=== PATIENT | female | born 1975 | race Caucasian/White ===

== ENCOUNTER 2017-06-08 17:15 | Emergency (ER) | payer MEDICAID, SELFPAY ==
[2017-06-08 17:17] VITALS: BP 125/81; PULSE 79; RESP 16; TEMP 36.8; O2SAT 100; BMI 19.7
--- NOTE | 2017-06-08 18:01 | ED.VISSUMM ---
- ER Visit Summary Date of Service: 06/08/17 Chief Complaint: Right breast lump History of Present Illness: The patient is a 42 F increasing lump right breast over 2 weeks. Yesterday became painful. No drainage. No fevers. States similar in the past in 2009 for which PCP at that time sent her for a mammogram which was benign stating was a cyst. States is in a different region. No other complaints. Physical Examination: General: Alert and oriented ?3, no acute distress HEENT: Normocephalic, atraumatic. Moist mucosa membranes Neck: supple, nontender. Cardiovascular: Regular rate and rhythm, no murmurs Breasts: RN present. Right: Induration noted lateral to alveolar along with superior alveolar. This was tender to palpation. No erythema or active drainage. Left: Nontender. Respiratory: Normal breath sounds, symmetric, no distress Abdomen: Soft, nontender, nondistended Extremities: Nontender, no edema, pulses intact ?4 Neuro: no focal neurological deficits. Test Results: Bedside ultrasound place, noted cystic lesion superior to the alveolar R of 2.6 cm x 2 cm. Fluid cytology sent and pending Emergency Department Course and Treatment: Patient given oxycodone for pain control. Due to tenderness and nodule palpated with cystic lesion, discuss needle aspiration for evaluation to rule out infection. Patient agreed. Bedside ultrasound performed with 2 mL of dark fluid return. This was sent for cytology. Discussed likely cystic lesion. However discussed with patient she require follow-up for outpatient reevaluation further testing. Patient understands and agrees with plan. Treatment Plan: [] Disposition: [] Impression: Right breast lump/cyst This note was generated with [employer] dictation software. It may contain incorrect words, spelling, and punctuation that were not noted in review of the chart prior to signing ED Disposition - Plan for ED Patient: Disposition: Home or Assisted Living Chief Complaint: Other, Pain/Inj Diagnosis: Cyst of right breast Prescriptions: Oxycodone HCl/Acetaminophen [Percocet 5/325] 1 tablet PO Q6H PRN PRN 3 Days #12 tablet PRN Reason: Pain Referrals: Marcial Santizo MD [Primary Care Provider] - 3-5 Days Additional Instructions: Cystic lesion on bedside ultrasound. Aspirated and sent for cytology. Follow-up with your doctor reevaluation further outpatient testing.
[2017-06-08] MEDS: oxyCODONE 5 MG Tablet PO (18:08)
--- NOTE | 2017-06-08 19:51 | FLU_PTH ---
PATIENT: BARNEY RANGEL LOC: ED U#:[id number] AGE/SX: 42/F ROOM: RE06/08/[address]: Dr. Anshu Lux DO : 1975 BED: DIS: 06/08/2017 SPEC #: [id number] RECD: 06/09/17 08:37 STATUS: DONNIE HERLINDA #: [id number] AJ: 06/08/17 19:[address]: Anshu Lux DEPT: CYTOLOGY RECD BY: Selvin Carrasco ENTERED: 06/09/17 08:38 SP TYPE: Fluid OTHR DR: Dr. Marcial Santizo MD Tissues: Breast, NOS Procedures: Pap Stain (control) Special Stain Group II Surgery Specimen Level IV Cell Block Cytospin Fluid HEADER OPERATION: Not noted PRE-OP DIAGNOSIS: Painful right breast lump TISSUE SUBMITTED: Right breast lump fluid for cytology DIAGNOSIS CYTOLOGY Right breast lump fluid for cytology (cytospin and cell block): Negative for malignant cells. See cytology study and comment. :rg 06/12/17 COMMENT The findings are consistent with fibrocystic changes. Correlation with clinical, radiologic findings and appropriate follow up are necessary. CYTOLOGY STUDY Slides are reviewed. The specimen consists of amorphous acellular material, macrophages and benign ductal cells. CYTOLOGY GROSS Received is 2 ml of dark brown, cloudy fluid labeled with the patient's name and and designated per the requisition as right breast lump. Submitted for cytology preparation including cell block. 06/09/17 TC:5 CPT: 97549, 69304
[2017-06-08 19:59] LABS: Cytology, Body Fluid / CSF SEE PATHOLOGY REPORT
[2017-06-08 20:01] VITALS: BP 117/86; PULSE 87; RESP 16; O2SAT 98
== END 2017-06-08 20:01 | disposition home or self-care (01) ==
PROVIDERS: Emergency Provider Emergency Medicine; Family Provider Family Medicine; PCP Family Medicine
DX: N60.01 Solitary cyst of right breast (principal); Z72.0 Tobacco use
CPT/HCPCS: 19083; 88108; 88305; 88313; 99283

== ENCOUNTER 2022-12-20 05:08 | Emergency (ER) | payer BC, SELFPAY ==
[2022-12-20] VITALS (7 sets, daily range): BP systolic 105–130; BP diastolic 63–75; PULSE 65–77; RESP 16–21; TEMP 36.5; O2SAT 95–100; BMI 21.4
--- NOTE | 2022-12-20 05:18 | EDS_ITS ---
HPI <Dr. Anshu Lux DO - Last Filed: 12/21/22 03:24> History of Present Illness Chief Complaint: Allergic Reaction Informant: patient and spouse/S.O. Narrative Narrative: Presents for concerning worsening allergic reaction. 2 days ago stung by bee right middle finger swelling to the area progressed to the hand has been using Benadryl every 6 hours last dose 6 hours ago. She is in contact with the on- call nurse. She is using topical steroids. However this morning awaking with trouble swallowing feels throat swelling. She has not been stung in the past. She denies any change in soaps or detergents. Denies any new medications. Past medical history social anxiety along with colitis diagnosed twice in [place] in the last year. Denies any cardiac history. Prior similar symptoms: No PFSH <Dr. Anshu Lux DO - Last Filed: 12/21/22 03:24> PFSH Medical History Anxiety Colitis Kidney stones Pneumonia Home Medications epinephrine 0.3 mg/0.3 mL injection, auto-injector (EpiPen 2-Nas) 0.3 mg (0.3 mL) IM Q10M PRN PRN anaphylaxis #2 ea 12/20/22 [Rx Last Taken Unknown] prednisone 20 mg tablet 60 mg (3 x 20 mg) PO DAILY #12 TABLETS 12/20/22 [Rx Last Taken Unknown] Allergy/AdvReac Type Severity Reaction Status Date / Time bee venom protein (honey bee) Allergy Hives Verified 12/20/22 05:10 dextromethorphan Allergy Other Verified 12/20/22 05:10 Family History Other Bleeding disorder Diabetes Family history of high cholesterol Hypertension Kidney disease Prostate cancer Surgical History History of tonsillectomy History of tubal ligation uterine ablation Social History Smoking Status: Current every day smoker tobacco type: cigarettes ROS <Dr. Anshu Lux DO - Last Filed: 12/21/22 03:24> ROS ED Constitutional Constitutional ED: Denies chills, fever(s) or sweats Eyes Eyes: Denies change in vision ENT ENT ED: Reports other Details: Throat swelling, hoarse voice ; Denies dysphagia or sore throat Cardiovascular Cardiovascular: Denies chest pain, leg edema, palpitations or racing heartbeat Respiratory/Chest Respiratory/Chest: Denies cough, dyspnea or dyspnea on exertion Gastrointestinal Gastrointestinal: Denies abdominal pain, diarrhea, nausea or vomiting Genitourinary Genitourinary ED: Denies dysuria, hematuria or urinary frequency Musculoskeletal Musculoskeletal: Denies back pain, extremity pain or neck pain Integumentary Reports wounds and other Details: Right middle finger and hand swelling ; Denies rash Neurologic Neurologic: Denies headache(s), paresthesias or weakness EXAM <Dr. Anshu Lux, DO - Last Filed: 12/21/22 03:24> Physical Exam Const Vital Signs: 12/20/22 05:11 12/20/22 06:02 12/20/22 07:33 Temperature 97.7 F L Temperature Source Temporal Pulse Rate 77 69 65 Respiratory Rate 16 18 18 Blood Pressure 121/70 H 130/63 H 107/75 Blood Pressure Mean 87 85 85 Pulse Ox 100 99 98 Oxygen Delivery Method Room Air 12/20/22 08:26 12/20/22 09:10 12/20/22 09:25 Temperature Temperature Source Pulse Rate 66 68 74 Respiratory Rate 21 H 19 H 21 H Blood Pressure 105/70 106/65 110/65 Blood Pressure Mean 81 78 80 Pulse Ox 97 97 95 Oxygen Delivery Method Room Air Room Air 12/20/22 09:32 Temperature Temperature Source Pulse Rate 76 Respiratory Rate 18 Blood Pressure 116/72 Blood Pressure Mean 86 Pulse Ox 97 Oxygen Delivery Method Room Air Positive well nourished and well developed Constitutional Narrative: Hoarse voice General Appearance ED: well developed and NAD HEENT Reports moist mucous membranes HEENT Narrative: No lip or tongue swelling. No trismus. No stridor normocephalic and atraumatic Eyes PERRL, EOMs intact bilaterally and conjunctivae normal General Eye ED: Yes normal appearance of both eyes Neck no lymphadenopathy and supple General: Negative for tenderness Chest Wall Chest: Negative for tenderness Resp normal respiratory effort and normal air movement Effort and Inspection: symmetric chest movement; Negative for respiratory distress Cardio regular rate, regular rhythm and no murmurs Peripheral Pulses: pulses 2+ throughout GI normal to inspection, nondistended, normoactive bowel sounds and non-tender Palpation: Negative for guarding or rebound tenderness present Back/Spine no CVA tenderness and no thoracic nor lumbar tenderness Extremity Extremity Narrative: Right upper extremity: Middle finger notes swelling to the digit across the PIP, there are papular rash lesions on the ulnar aspect of the digit. There is dorsal hand swelling. Mild erythema. No streaking up the arm. No stinger present. General Extremety ED: Negative for edema or tenderness General Extremity: Negative for edema Neuro oriented x3 and no sensory deficits noted Sensorium / Orientation: awake and alert Skin Skin Narrative: See above <Dr. Mckenna Jamil, DO - Last Filed: 12/20/22 09:16> Physical Exam Const Vital Signs: 12/20/22 05:11 12/20/22 06:02 12/20/22 07:33 Temperature 97.7 F L Temperature Source Temporal Pulse Rate 77 69 65 Respiratory Rate 16 18 18 Blood Pressure 121/70 H 130/63 H 107/75 Blood Pressure Mean 87 85 85 Pulse Ox 100 99 98 Oxygen Delivery Method Room Air 12/20/22 08:26 12/20/22 09:10 12/20/22 09:25 Temperature Temperature Source Pulse Rate 66 68 74 Respiratory Rate 21 H 19 H 21 H Blood Pressure 105/70 106/65 110/65 Blood Pressure Mean 81 78 80 Pulse Ox 97 97 95 Oxygen Delivery Method Room Air Room Air 12/20/22 09:32 Temperature Temperature Source Pulse Rate 76 Respiratory Rate 18 Blood Pressure 116/72 Blood Pressure Mean 86 Pulse Ox 97 Oxygen Delivery Method Room Air MDM <Dr. Anshu Lux, DO - Last Filed: 12/21/22 03:24> MDM MDM Narrative Medical decision making narrative: Interventions / MDM: Differential diagnosis: Anaphylaxis, bee sting Diagnosis considered but do not suspect: N/A My EKG interpretation: N/A Imaging independently reviewed and interpreted by myself: N/A External documents reviewed: N/A Test considered but not ordered:N/A ED course: Vital stable, localized bee sting 2 days ago however developed throat swelling hoarseness this morning. Secondary to the symptoms epinephrine will be given, IV established for steroids Benadryl and Pepcid. Will monitor. 0550: Throat symptoms improving. Status post medications. Will monitor overall for 4 hours for medications due to anaphylaxis concerns. Patient has Pepcid at home for which she is taking for her colitis, she will take twice a day. Benadryl every 6 hours. Plan for steroids and epinephrine pen all be sent to her pharmacy. 0640: Symptoms continue to be improved with improved voice. We will continue to monitor. Re-evaluation: stable Disposition discussed with patient/family/significant other: Patient and significant other Case discussed with consulting clinician: N/A This note was generated with [employer] software. It may contain incorrect words, spelling, and punctuation that were not noted in checking the note before signing. <Dr. Mckenna Jamil, DO - Last Filed: 12/20/22 09:16> MDM MDM Narrative Medical decision making narrative: Interventions / MDM: Differential diagnosis: Anaphylaxis, bee sting Diagnosis considered but do not suspect: N/A My EKG interpretation: N/A Imaging independently reviewed and interpreted by myself: N/A External documents reviewed: N/A Test considered but not ordered:N/A ED course: Vital stable, localized bee sting 2 days ago however developed throat swelling hoarseness this morning. Secondary to the symptoms epinephrine will be given, IV established for steroids Benadryl and Pepcid. Will monitor. 0550: Throat symptoms improving. Status post medications. Will monitor overall for 4 hours for medications due to anaphylaxis concerns. Patient has Pepcid at home for which she is taking for her colitis, she will take twice a day. Benadryl every 6 hours. Plan for steroids and epinephrine pen all be sent to her pharmacy. 0640: Symptoms continue to be improved with improved voice. We will continue to monitor. Re-evaluation: stable Disposition discussed with patient/family/significant other: Patient and significant other Case discussed with consulting clinician: N/A This note was generated with [employer] software. It may contain incorrect words, spelling, and punctuation that were not noted in checking the note before signing. Care of patient turned over to me this morning awaiting evaluation and observation period. At 9:15 AM patient without complaints. She has no lip or tongue or throat swelling. No difficulty breathing. Does continue to have some soft tissue swelling to the dorsum of the right hand and middle finger. Patient asking to be discharged to home. Clinically she looks well. Dr. Daly wrote patient prescription for EpiPen as well as prednisone. Patient advised to return if lip or tongue swelling, difficulty breathing, or condition worsening way. Discharge Plan Triage Chief Complaint: Allergic Reaction ED Provider: Anshu Lux Dx/Rx/DC Orders Clinical Impression: Anaphylactic reaction, Bee sting reaction Instructions: ED BEE STING General Allergic Rxn, ED Anaphylaxis Prescriptions: New prednisone 20 mg tablet 60 mg PO DAILY Qty: 12 0RF epinephrine [EpiPen 2-Nas] 0.3 mg/0.3 mL auto-injector 0.3 mg IM Q10M PRN PRN (Reason: anaphylaxis) Qty: 2 0RF Stand Alone Forms: ED Work / School Excuse Primary Care Provider: Marcial Santizo Referrals: Marcial Santizo MD [Primary Care Provider] - 3-5 Days Activity Restrictions/Additional Instructions: You have developed delayed swelling in throat to bee sting. You are given epinephrine in the ED. EpiPen provided. Take steroids for additional 4 days. Increase your famotidine to twice a day for 5 days total. Use Benadryl every 6 hours as needed. Follow-up with your doctor. Return if any worsening symptoms. Disposition Disposition: Home, Self Care Discharge Date/Time: 12/20/22 09:33
[2022-12-20] MEDS: DiphenhydrAMINE 50 MG/ML Syringe IV (05:25)
[2022-12-20] MEDS: MethylPREDNISolone 125 MG/2 ML Vial IV (05:25)
[2022-12-20] MEDS: Epi Pen (EQUIV) 0.3 MG Syringe IM (05:29)
[2022-12-20] MEDS: Famotidine 200 MG/20 ML MDV 20 MG in 0.9% Normal Saline (Pres. free 8 ML 300 MG IV (05:34)
== END 2022-12-20 09:33 | disposition home or self-care (01) ==
PROVIDERS: Emergency Provider Emergency Medicine; PCP Family Medicine; Visit Provider Emergency Medicine
DX: T63.444A Toxic effect of venom of bees, undetermined, initial encounter (principal); F17.210 Nicotine dependence, cigarettes, uncomplicated
CPT/HCPCS: 96365; 96375; 99283; J7030; A4216; J3490

== ENCOUNTER 2023-02-25 01:40 | Observation (INO) | payer BC, SELFPAY ==
[2023-02-25] VITALS (7 sets, daily range): BP systolic 93–142; BP diastolic 41–89; PULSE 60–79; RESP 16–22; TEMP 36–37.1; O2SAT 98–100; BMI 20.9; BMI 20.2
--- NOTE | 2023-02-25 01:51 | CT_ITS ---
INDICATION: abdominal pain EXAMINATION: CT Abdomen And Pelvis W/ Contrast Injection TECHNIQUE: Helically acquired images were obtained of the abdomen and pelvis with sagittal and coronal reconstructed images. Individualized dose optimization techniques were used for this CT. IV contrast dosage and agent: 75 mL of Isovue-370. Oral contrast: None. COMPARISON: None. FINDINGS: VESSELS: No abdominal aortic aneurysm or dissection. LIVER: No evidence of a mass. No intrahepatic or extrahepatic biliary duct dilation. GALLBLADDER: No calcified stones. No evidence of cholecystitis. PANCREAS: No focal solid or cystic mass. No evidence of pancreatitis. SPLEEN: Normal. ADRENAL GLANDS: Normal. KIDNEYS AND URETERS: 8 mm low-density lesion within the upper pole of the right kidney with indeterminate attenuation values. No urinary tract stone. No hydronephrosis or hydroureter. No significant asymmetric perinephric stranding. URINARY BLADDER: Unremarkable. BOWEL: Thickening of the ascending colon with mild adjacent fat stranding. No evidence of diverticulosis or diverticulitis. Appendix appears normal. No evidence of bowel obstruction. REPRODUCTIVE ORGANS: No evidence of a pelvic mass. PERITONEUM: No intraabdominal free fluid or free air. LYMPH NODES: No pathologically enlarged mesenteric or retroperitoneal lymph nodes. ABDOMINAL WALL: No abdominal or pelvic wall hernia. BONES: No acute abnormality. LOWER CHEST: Visualized lung bases are unremarkable. CT/Abdomen/Pelvis W IV Cont ONLY IMPRESSION: 1. Thickening of the ascending colon with mild adjacent fat stranding consistent with colitis. 2. 3 mm low-density lesion in the upper pole of the right kidney with indeterminate attenuation values. Recommend follow-up with routine MRI versus CT with dedicated renal protocol. Electronically Signed: Joseph Fernandes DO at 3:39 EST ,
--- NOTE | 2023-02-25 01:52 | ED.VIS.GI ---
HPI HPI - GI History of Present Illness Chief Complaint: Abd Pain Detail of Chief Complaint: Abdominal pain Informant: patient Narrative Narrative: Patient presents with abdominal pain that started about 2 hours ago. Patient had been drinking heavily today because tomorrow is her birthday. She was drinking tequila. Patient started having nausea and vomiting around 10 PM last evening. Started having diarrhea. Patient has felt similarly in the past when diagnosed with colitis. She denies any blood in her stool. She denies hematemesis. Denies urinary symptoms. PFSH PFSH Medical History Alcohol abuse Anxiety Colitis Depression GERD (gastroesophageal reflux disease) Kidney stones Marijuana smoker Panic disorder Pneumonia Smoker Home Medications famotidine 10 mg tablet 10 mg PO DAILY 02/25/23 [History Last Taken Unknown] Allergy/AdvReac Type Severity Reaction Status Date / Time bee venom protein (honey bee) Allergy Hives Verified 02/25/23 01:40 dextromethorphan Allergy Other Verified 02/25/23 01:40 Family History Other Bleeding disorder Diabetes Family history of high cholesterol Hypertension Kidney disease Prostate cancer Surgical History History of tonsillectomy History of tubal ligation uterine ablation Social History Smoking Status: Current every day smoker tobacco type: cigarettes ROS ROS ED Review of Systems ROS Unobtainable: other Constitutional Constitutional ED: Reports lethargy; Denies chills, fever(s), sweats or weight loss Eyes Eyes: Denies blurry vision, change in vision or diplopia ENT ENT ED: Denies rhinorrhea or sore throat Cardiovascular Cardiovascular: Reports chest pain and racing heartbeat; Denies orthopnea Respiratory/Chest Respiratory/Chest: Reports dyspnea and dyspnea on exertion; Denies cough, orthopnea or sputum Gastrointestinal Gastrointestinal: Reports abdominal pain, diarrhea, nausea and vomiting Genitourinary Genitourinary ED: Denies dysuria, hematuria or urinary frequency Musculoskeletal Musculoskeletal: Denies arthralgias, back pain, myalgias or neck pain Integumentary Denies abscess, Abrasions or rash Neurologic Neurologic: Denies headache(s) or weakness Psychiatric Psychiatric: Denies anxiety, depression or suicidal thoughts Endocrine Endocrinology: Denies polydipsia, polyphagia or polyuria Hematologic/Lymphatic Hematologic/Lymphatic: Denies easy bleeding, easy bruising or lymphadenopathy Allergic/Immunologic Allergic/Immunologic ED: Denies mouth swelling, tongue swelling or urticaria EXAM Physical Exam Const Vital Signs: 02/25/23 01:40 02/25/23 01:48 Temperature 96.8 F L Temperature Source Temporal Pulse Rate 72 Respiratory Rate 22 H Blood Pressure 132/82 H Blood Pressure Mean 98 Pulse Ox 99 Oxygen Delivery Method Room Air Positive well nourished and well developed General Appearance ED: well developed and NAD HEENT Reports TM's clear and moist mucous membranes normocephalic and atraumatic; Negative for trauma or tenderness Tympanic Membrane ED: Yes TM's clear Eyes PERRL and EOMs intact bilaterally General Eye ED: Negative for pale conjunctiva or scleral icterus Neck no lymphadenopathy, supple and no JVD General: Negative for tenderness Chest Wall inspection of chest normal and palpation of chest normal Chest: Negative for tenderness Resp normal respiratory effort and clear to auscultation bilaterally Effort and Inspection: Negative for respiratory distress or pain with movement Auscultation: Negative for rhonchi, wheezes or diminished lung sounds Cardio regular rate, regular rhythm, S1 normal heart sound, S2 normal heart sound and no murmurs Peripheral Pulses: pulses 2+ throughout GI normal to inspection, nondistended, normoactive bowel sounds, soft to palpation, non-distended and no masses GI Narrative: Mild diffuse tenderness. There is no rebound, rigidity, or perineal signs. No mass palpated. Back/Spine no CVA tenderness and no thoracic nor lumbar tenderness Extremity normal to inspection General Extremety ED: Negative for edema General Extremity: Negative for edema Neuro oriented x3, CN's II-XII intact bilaterally, no sensory deficits noted and gait normal Sensorium / Orientation: awake, alert, oriented to person, oriented to place and oriented to time Motor Exam: strength 5/5 throughout and strength abnormal Psych mental status grossly normal Skin no rashes or lesions noted and no wounds MDM MDM MDM Narrative Medical decision making narrative: Presents with abdominal pain as well as vomiting and diarrhea that started 2 hours ago. Patient has history of colitis. IV line established. She was medicated with morphine and Zofran. CBC with differential obtained showed a white count 12.3 with hemoglobin 12.8 and platelet count of 276. Chemistries unremarkable. Lactate was elevated 3.1. LFTs were normal. Lipase normal. Urinalysis normal. Alcohol was 70. CT scan of the abdomen pelvis showed colitis of the right side of the ascending colon. Patient had to be remedicated with morphine and Zofran after initial treatment with morphine and Zofran. She was started on Cipro and Flagyl. She was given fluids. Case discussed with hospitalist will evaluate patient for admission Lab Data Attestation: I reviewed the patient's lab results. Labs: Laboratory Results - last 24 hr 02/25/23 02/25/23 02:03 03:10 WBC 12.3 H RBC 4.06 L Hgb 12.8 Hct 39.1 MCV 96.3 MCH 31.5 MCHC 32.7 RDW Std Deviation 43.6 RDW Coeff of Huong 12.2 Plt Count 276 MPV 12.0 Neut % (Auto) Not Reportable Absolute Neuts (auto) 11.1 H Absolute Lymphs (auto) 1.11 Total Counted 100 Neutrophils % (Manual) 90 H Lymphocytes % (Manual) 9 L Monocytes % (Manual) 1 Platelet Estimate ADEQUATE RBC Morphology NORM C+C Sodium 144 Potassium 3.8 Chloride 116 H Carbon Dioxide 22.0 Anion Gap 6 BUN 4 L Creatinine 0.68 Estim Creat Clear Calc 90.22 Est GFR (MDRD) Af Amer 120 Est GFR (MDRD) Non-Af 99 BUN/Creatinine Ratio 5.9 L Glucose 138 H Lactic Acid 3.1 H* Calcium 8.8 Total Bilirubin 0.20 AST 6 L ALT 12 L Alkaline Phosphatase 52 Total Protein 7.6 Albumin 3.8 Globulin 3.8 Albumin/Globulin Ratio 1.0 Lipase 35 Urine Color Yellow Urine Clarity Clear Urine pH 7.0 Ur Specific Shanks 1.010 Urine Protein 15 H Urine Glucose (UA) Normal Urine Ketones Negative Urine Occult Blood Negative Urine Nitrite Negative Urine Bilirubin Negative Urine Urobilinogen Normal Ur Leukocyte Esterase 25 H Urine RBC 0 SEEN Urine WBC 0-5 SEEN Ur Squamous Epith Cells 0-5 SEEN Urine Bacteria 0 SEEN Urine Mucus 0 SEEN Ethyl Alcohol 70.0 Radiography Diagnostic Testing: Clinical Impression(s) from Imaging Studies Abdomen/Pelvis CT 02/25/23 01:51 IMPRESSION: 1. Thickening of the ascending colon with mild adjacent fat stranding consistent with colitis. 2. 3 mm low-density lesion in the upper pole of the right kidney with indeterminate attenuation values. Recommend follow-up with routine MRI versus CT with dedicated renal protocol. Electronically Signed: Joseph Fernandes DO at 3:39 EST , Discharge Plan Dx/Rx/DC Orders Clinical Impression: Vomiting and diarrhea, Colitis, Abdominal pain, Acidosis, lactic Disposition Disposition: Acute Care Hospital [facility] Discharge Date/Time: 02/25/23 04:46
[2023-02-25] MEDS: 0.9% Normal Saline (1000mL) 1,000 ML 1000 ML IV (02:05)
[2023-02-25] MEDS: Ondansetron 4 MG/2 ML Vial IV ×2 (02:05→04:26)
[2023-02-25] MEDS: Morphine 4 MG/ML Syringe IV ×2 (02:06→04:25)
[2023-02-25 02:16] LABS: Hematocrit 39.1 % (37-47); Hemoglobin 12.8 g/dL (12.0-15.0); Mean Corp Hgb Conc 32.7 g/dL (32-36); Mean Corpuscular Hgb 31.5 pg (27.0-32.0); Mean Corpuscular Volume 96.3 fL (81-99); POSITIVE DIFFERENTIAL YES; POSITIVE MORPHOLOGY YES; Platelet Count 276 K/mm3 (150-450); RBC Distribution Width CV 12.2 % (11.6-14.6); RBC Distribution Width SD 43.6 fl (35.1-43.9); Red Blood Count 4.06 M/mm3 (4.2-5.4); White Blood Count 12.3 K/mm3 (4.4-11.0)
[2023-02-25 02:32] LABS: Differential Indicated MANUAL DIFF
[2023-02-25 02:33] LABS: AST(SGOT) 6 U/L (15-37); Alanine Aminotransfer ALT/SGPT 12 U/L (13-56); Albumin, Serum 3.8 g/dL (3.2-5.0); Alkaline Phosphatase 52 U/L (45-117); Anion Gap 6 (5-15); BUN 4 mg/dL (7-18); BUN/Creat Ratio 5.9 RATIO (10-20); Calcium,Total 8.8 mg/dL (8.5-10.1); Chloride 116 mmol/L (98-107); Creatinine, Serum 0.68 mg/dL (0.55-1.02); EST Glomerular Filtration Rate 99 mL/min (>60); Est Glom Filt Rate - Afr Amer 120 mL/min (>60); Estimated Creatinine Clearance 90.22 ml/min; Globulin 3.8 g/dL (2.2-4.2); Glucose 138 mg/dL (74-106); Lipase 35 U/L (13-75); Potassium 3.8 mmol/L (3.5-5.1); Protein, Total 7.6 g/dL (6.4-8.2); Sodium Level 144 mmol/L (136-145)
[2023-02-25 02:35] LABS: Lymphocyte 9 % (19-41); Monocyte 1 % (0-10); Neutrophil-Segmented 90 % (47-70); Total Cells Counted 100 (MANUAL DIFF)
[2023-02-25 02:36] LABS: Absolute Lymphocyte Count 1.11 X10^3/uL (0.83-4.51); Absolute Neutrophil Count 11.1 X10^3/uL (2.0-7.7); Lymphocyte # 1.11 X10^3/ul (0.83-4.51); Neutrophil # 11.08 X10^3/uL (2.7-7.7)
[2023-02-25 02:37] LABS: Platelet Estimate ADEQUATE (ADEQ); Red Cell Morphology NORM C+C NORMAL (NORM C&C)
[2023-02-25 02:43] LABS: Lactic Acid 3.1 mmol/L (0.4-1.9)
[2023-02-25 03:14] LABS: Bacteria 0 SEEN /hpf (None Seen); Mucous, Urine 0 SEEN /hpf (<or=2+); Red Blood Cells-Urine 0 SEEN /hpf (0-5)
[2023-02-25 03:15] LABS: Color, Urine Yellow (Yellow); Glucose, Dipstick Normal (Normal); Ketone-Dipstick Negative (Negative); Leukocyte Esterase-Dipstick 25 /ul (Negative); Nitrite-Dipstick Negative (Negative); Occult Blood-Urine Negative /ul (Negative); Protein-Dipstick 15 mg/dl (Negative); Urine Bilirubin Dipstick Negative (Negative); Urine Clarity Clear (Clear); Urine Urobilinogen Normal (Normal)
[2023-02-25 03:25] LABS: Squamous Epithelial Cells - UA 0-5 SEEN /hpf (5-10); White Blood Cells 0-5 SEEN /hpf (0-5)
--- NOTE | 2023-02-25 04:10 | PCM.HP.STD ---
HPI - General General Date of Admission: 02/25/23 Date of Service: 02/25/23 Chief Complaint: abdominal pain HPI Narrative BARNEY RANGEL, is a 47 F with a PMh as outlined who presents via the ED On 02/25/2023 with a complaint of abdominal pain which started 2 hours prior to admission. Patient had apparently been drinking very happily in anticipation of her birthday which was the next day. She was apparently drinking tequila. She had associated vomiting and diarrhea and was also vomiting. She denied any fever or chills. Review of systems was otherwise negative. Vitals were BP of 132/82, LA of 72, RR of 22 and she was saturating at 99% on room air. CBC showed hb of 12.8, wbc of 12.3 and platelets of 276. Chemsitry showed sodium of 144,bicarb of 22 and Cr of 0.68. Lactic acid was 3.1 and liver enzymes were not elevated. Urinalysis showed no evidence of UTI. CT abdomen and pelvis showed thickening of the ascending colon with mild adjacent fat stranding consistent with colitis and a 3 mm low density lesion in the upper pole of the right kidney indeterminate attenuation values. She has been admitted to be managed abdominal pain due to acute colitis likely triggered by excessive alcohol intake. [facility] Medical History Alcohol abuse Anxiety Colitis Depression GERD (gastroesophageal reflux disease) Kidney stones Marijuana smoker Panic disorder Pneumonia Smoker Home Medications famotidine 10 mg tablet 10 mg PO DAILY 02/25/23 [History Last Taken Unknown] Allergy/AdvReac Type Severity Reaction Status Date / Time bee venom protein (honey bee) Allergy Hives Verified 02/25/23 01:40 dextromethorphan Allergy Other Verified 02/25/23 01:40 Family History Other Bleeding disorder Diabetes Family history of high cholesterol Hypertension Kidney disease Prostate cancer Surgical History History of tonsillectomy History of tubal ligation uterine ablation Social History Smoking Status: Current every day smoker tobacco type: cigarettes ROS Review of Systems ROS Unobtainable: Denies due to encephalopathy Constitutional Constitutional: Reports fatigue and malaise; Denies anorexia, change in weight, chills, fever(s) or weakness Eyes Eyes: Denies change in eye color ENT HEENT: Denies dysphagia or sore throat Cardiovascular Cardiovascular: Denies dyspnea on exertion, edema, lightheadedness, orthopnea, palpitations, paroxysmal nocturnal dyspnea, rapid heart rate or syncope Respiratory/Chest Respiratory/Chest: Denies cough, dyspnea, productive cough, shortness of breath at rest, shortness of breath with exertion or wheezing Gastrointestinal Gastrointestinal: Reports abdominal pain, diarrhea and nausea; Denies coffee ground emesis, constipation, dyspepsia, hematemesis, hematochezia, loose stools, melena or vomiting Genitourinary Genitourinary: Denies difficulty urinating Musculoskeletal Musculoskeletal: Denies joint pain Psychiatric Psychiatric: Reports anxiety; Denies depression Vital Signs Vital Signs Vital Signs: 02/25/23 01:40 02/25/23 01:48 Temperature 96.8 F L Temperature Source Temporal Pulse Rate 72 Respiratory Rate 22 H Blood Pressure 132/82 H Blood Pressure Mean 98 Pulse Ox 99 Oxygen Delivery Method Room Air Weight Weight: 122 lb 5.705 oz Body Mass Index (BMI) 20.9 Physical Exam Const alert Constitutional Narrative: in moderate distress due to pain HEENT normocephalic, head/scalp atraumatic, hearing grossly normal bilaterally and moist oral mucous membranes Mouth: oral and palatal mucosa normal Eyes PERRL, EOMs intact bilaterally and conjunctivae normal Neck no lymphadenopathy and supple Resp normal respiratory effort, no retractions, no use of accessory muscles and clear to auscultation bilaterally Cardio regular rate, regular rhythm, S1 normal heart sound, S2 normal heart sound and no murmurs GI normal to inspection, nondistended, normoactive bowel sounds and soft to palpation GI Narrative: mild generalised tenderness, no guarding or rebound tenderness Extremity normal to inspection, full ROM and no clubbing, cyanosis or edema Neuro oriented x3, CN's II-XII intact bilaterally, moves all extremities and no focal motor deficits Sensorium / Orientation: awake Motor Exam: strength 5/5 throughout Psych affect normal Results Lab / Micro Data 02/25/23 02:03 02/25/23 02:03 Labs: Laboratory Results - last 24 hr 02/25/23 02:03: WBC 12.3 H, RBC 4.06 L, Hgb 12.8, Hct 39.1, MCV 96.3, MCH 31.5, MCHC 32.7, RDW Std Deviation 43.6, RDW Coeff of Huong 12.2, Plt Count 276, MPV 12.0, Neut % (Auto) Not Reportable, Absolute Neuts (auto) 11.1 H, Absolute Lymphs (auto) 1.11, Total Counted 100, Neutrophils % (Manual) 90 H, Lymphocytes % (Manual) 9 L, Monocytes % (Manual) 1, Platelet Estimate ADEQUATE, RBC Morphology NORM C+C, Sodium 144, Potassium 3.8, Chloride 116 H, Carbon Dioxide 22.0, Anion Gap 6, BUN 4 L, Creatinine 0.68, Estim Creat Clear Calc 90.22, Est GFR (MDRD) Af Amer 120, Est GFR (MDRD) Non-Af 99, BUN/Creatinine Ratio 5.9 L, Glucose 138 H, Lactic Acid 3.1 H*, Calcium 8.8, Total Bilirubin 0.20, AST 6 L, ALT 12 L, Alkaline Phosphatase 52, Total Protein 7.6, Albumin 3.8, Globulin 3.8, Albumin/Globulin Ratio 1.0, Lipase 35, Ethyl Alcohol 70.0 02/25/23 03:10: Urine Color Yellow, Urine Clarity Clear, Urine pH 7.0, Ur Specific [place] 1.010, Urine Protein 15 H, Urine Glucose (UA) Normal, Urine Ketones Negative, Urine Occult Blood Negative, Urine Nitrite Negative, Urine Bilirubin Negative, Urine Urobilinogen Normal, Ur Leukocyte Esterase 25 H, Urine RBC 0 SEEN, Urine WBC 0-5 SEEN, Ur Squamous Epith Cells 0-5 SEEN, Urine Bacteria 0 SEEN, Urine Mucus 0 SEEN Imagaing Radiology Impression Abdomen/Pelvis CT 02/25/23 01:51 IMPRESSION: 1. Thickening of the ascending colon with mild adjacent fat stranding consistent with colitis. 2. 3 mm low-density lesion in the upper pole of the right kidney with indeterminate attenuation values. Recommend follow-up with routine MRI versus CT with dedicated renal protocol. Electronically Signed: Joseph Fernandes DO at 3:39 EST , Assessment & Plan Assessment/Plan (1) Abdominal pain: (2) Colitis: (3) Vomiting and diarrhea: (4) Acidosis, lactic: PLAN: Plan #Acute colitis Admit to [facility] Started having abdominal pain after drinking a lot of alcohol anticipation of her birthday in a few days. CT of the abdomen and pelvis showed thickening of the ascending colon with mild adjacent fat stranding consistent with colitis. Keep n.p.o. for now and hydrate with IV fluids. IV morphine as needed for pain Lactic acid was elevated; wbc is up to 12.3. Patient started on IV ciprofloxacin and metronidazole in the ED. Will continue. #lactic acidosis: likely due to diarrhea and vomiting. Should improve with hydration. #Alcohol use disorder Patient was drinking heavily in anticipation of her birthday in a few days time. However she says she does not drink heavily that often. Currently not in withdrawal. Will monitor for now and initiate CIWA protocol if needed. #GERD: on famotidine. DVT prophylaxis; SCDs Total time spent on evaluation and management of patient, reviewing chart and specialist notes, discussing plan with patient and her partner, discussion with nursing and ancillary staff as well as documentation: 52 mins Charges/Coding Visit Charges Inpatient E&M: 91672 Init Hosp L2
[2023-02-25] MEDS: Ciprofloxacin 400 MG/200 ML BAG 200 MG IV ×3 (04:26→22:34)
[2023-02-25 06:13] LABS: Reflex Lactate? Y
[2023-02-25] MEDS: 0.9% Normal Saline (1000mL) 1,000 ML 150 ML IV ×2 (06:45→17:15)
[2023-02-25] MEDS: metroNIDAZOLE 500 MG/100 ML BAG 100 MG IV ×3 (06:48→20:36)
[2023-02-25] MEDS: 0.9% Saline Lock 10 ML Syringe IV ×3 (06:48→09:52)
[2023-02-25 07:21] LABS: Absolute Lymphocyte Count 0.67 X10^3/uL (0.83-4.51); Absolute Neutrophil Count 10.7 X10^3/uL (2.0-7.7); Basophil# 0.02 X10^3/uL; Basophil% 0.2 % (0-1); Hematocrit 36.3 % (37-47); Hemoglobin 12.1 g/dL (12.0-15.0); Lymphocyte # 0.67 X10^3/ul (0.83-4.51); Lymphocyte % 5.8 % (19-41); Mean Corp Hgb Conc 33.3 g/dL (32-36); Mean Corpuscular Hgb 31.8 pg (27.0-32.0); Mean Corpuscular Volume 95.5 fL (81-99); Mean Platelet Vol. 11.9 fl (6.2-12.0); Monocyte# 0.14 X10^3/uL; Monocyte% 1.2 % (0-10); NRBC Flagged by Analyzer 0 % (0-5); Neutrophil # 10.71 X10^3/uL (2.7-7.7); Neutrophil % 92.5 % (47-70); Platelet Count 240 K/mm3 (150-450); RBC Distribution Width CV 12.3 % (11.6-14.6); RBC Distribution Width SD 42.5 fl (35.1-43.9); White Blood Count 11.6 K/mm3 (4.4-11.0)
--- NOTE | 2023-02-25 07:47 | PCM.PN.HOSP ---
Reason for Visit Reason for Visit: Diagnoses Acidosis, unspecified (02/25/23) Noninfective gastroenteritis and colitis, unspecified (02/25/23) Unspecified abdominal pain (02/25/23) Vomiting, unspecified (02/25/23) Diarrhea, unspecified (02/25/23) Subjective Subjective Patient is a 47-year-old lady who presented with abdominal pain with associated nausea and vomiting imaging studies obtained on admission did show Thickening of the ascending colon with mild adjacent fat stranding consistent with colitis. Admitted to regular nursing floor for further management Objective Data Objective Data Vital Signs: Vital Signs Temp Pulse Resp BP Pulse Ox O2 Del Method 97.6 F L 79 20 H 116/82 H 98 Room Air 02/25/23 06:57 02/25/23 06:57 02/25/23 06:57 02/25/23 06:57 02/25/23 06:57 02/25/23 06:57 Oxygen Delivery Method Room Air Weight: 53.5 kg Body Mass Index (BMI) 20.2 Intake & Output: Intake and Output for Last 24 Hours 02/23/23 02/24/23 02/25/23 23:59 23:59 23:59 Intake Total 1200 / 1200 Balance 1200 / 1200 Lab / Micro Data 02/25/23 07:09 02/25/23 07:09 Labs: Laboratory Results - last 24 hr 02/25/23 02:03: WBC 12.3 H, RBC 4.06 L, Hgb 12.8, Hct 39.1, MCV 96.3, MCH 31.5, MCHC 32.7, RDW Std Deviation 43.6, RDW Coeff of Huong 12.2, Plt Count 276, MPV 12.0, Neut % (Auto) Not Reportable, Absolute Neuts (auto) 11.1 H, Absolute Lymphs (auto) 1.11, Total Counted 100, Neutrophils % (Manual) 90 H, Lymphocytes % (Manual) 9 L, Monocytes % (Manual) 1, Platelet Estimate ADEQUATE, RBC Morphology NORM C+C, Sodium 144, Potassium 3.8, Chloride 116 H, Carbon Dioxide 22.0, Anion Gap 6, BUN 4 L, Creatinine 0.68, Estim Creat Clear Calc 90.22, Est GFR (MDRD) Af Amer 120, Est GFR (MDRD) Non-Af 99, BUN/Creatinine Ratio 5.9 L, Glucose 138 H, Lactic Acid 3.1 H*, Calcium 8.8, Total Bilirubin 0.20, AST 6 L, ALT 12 L, Alkaline Phosphatase 52, Total Protein 7.6, Albumin 3.8, Globulin 3.8, Albumin/Globulin Ratio 1.0, Lipase 35, Ethyl Alcohol 70.0 02/25/23 03:10: Urine Color Yellow, Urine Clarity Clear, Urine pH 7.0, Ur Specific [place] 1.010, Urine Protein 15 H, Urine Glucose (UA) Normal, Urine Ketones Negative, Urine Occult Blood Negative, Urine Nitrite Negative, Urine Bilirubin Negative, Urine Urobilinogen Normal, Ur Leukocyte Esterase 25 H, Urine RBC 0 SEEN, Urine WBC 0-5 SEEN, Ur Squamous Epith Cells 0-5 SEEN, Urine Bacteria 0 SEEN, Urine Mucus 0 SEEN 02/25/23 07:09: WBC 11.6 H, RBC 3.80 L, Hgb 12.1, Hct 36.3 L, MCV 95.5, MCH 31.8, MCHC 33.3, RDW Std Deviation 42.5, RDW Coeff of Huong 12.3, Plt Count 240, MPV 11.9, Immature Gran % (Auto) 0.300, Neut % (Auto) 92.5 H, Lymph % (Auto) 5.8 L, [place] % (Auto) 1.2, Eos % (Auto) 0.0, Baso % (Auto) 0.2, Absolute Neuts (auto) 10.7 H, Absolute Lymphs (auto) 0.67 L, Nucleated RBC % 0 Radiography Diagnostic Testing: Radiology Impression Abdomen/Pelvis CT 02/25/23 01:51 IMPRESSION: 1. Thickening of the ascending colon with mild adjacent fat stranding consistent with colitis. 2. 3 mm low-density lesion in the upper pole of the right kidney with indeterminate attenuation values. Recommend follow-up with routine MRI versus CT with dedicated renal protocol. Electronically Signed: Joseph Fernandes DO at 3:39 EST , Physical Exam Narrative GENERAL: cooperative HEENT: Atraumatic; normocephalic EYES; Anicteric, Normal Conjunctiva NECK; supple, normal thyroid, RESPIRATORY: Diminished to auscultation CARDIOVASCULAR: Regular S1 S2, GI: soft, normoactive bowel sounds, : No Renal angle tenderness; EXTREMITIES: No edema, no clubbing, MUSCULOSKELETAL: no muscle wasting NEURO: Awake; no lateralizing signs. SKIN: No Rash PSYCH; Flat affect Assessment & Plan Assessment/Plan (1) Colitis: PLAN: Plan Patient is a 47-year-old lady who presented with abdominal pain with associated nausea and vomiting imaging studies obtained on admission did show Thickening of the ascending colon with mild adjacent fat stranding consistent with colitis. Admitted to regular nursing floor for further management 1. Acute colitis ? Patient admitted to regular nursing floor managed with ciprofloxacin as well as metronidazole. Patient has had apparently had recurrent colitis consult was therefore placed to GI for possible endoscopic evaluation to rule out underlying IBD 2. Chronic marijuana use I did explain to patient that may contribute to patient's symptoms including the nausea and vomiting 3. A2. 3 mm low-density lesion in the upper pole of the right kidney with indeterminate attenuation values. -Plan is for patient to follow-up with her routine MRI as outpatient to be performed by patient's primary care physician 4. DVT prophylaxis ? Low risk with encouraging ambulation Time spent in the patient's overall evaluation,decision-making process, review of diagnostic data, adjustment of management, discussion with other providers, nursing nursing and ancillary staff involved in patient's care documentation, 35 Minutes Charges/Coding Visit Charges Inpatient E&M: 80483 Subs Hosp L2
[2023-02-25 08:14] LABS: Lactic Acid 1.7 mmol/L (0.4-1.9)
[2023-02-25] MEDS: proCHLORPERazine 10 MG/2 ML Vial 5 MG IV (08:14)
[2023-02-25] MEDS: Morphine 2 MG/ML Syringe IV (08:14)
[2023-02-25 09:01] LABS: Anion Gap 7 (5-15); BUN 5 mg/dL (7-18); BUN/Creat Ratio 6.7 RATIO (10-20); Calcium,Total 8.1 mg/dL (8.5-10.1); Chloride 116 mmol/L (98-107); Creatinine, Serum 0.75 mg/dL (0.55-1.02); EST Glomerular Filtration Rate 88 mL/min (>60); Est Glom Filt Rate - Afr Amer 107 mL/min (>60); Glucose 124 mg/dL (74-106); Sodium Level 143 mmol/L (136-145)
[2023-02-25] MEDS: Enoxaparin 40 MG/0.4 ML Syringe SC (09:49)
[2023-02-25] MEDS: Famotidine 20 MG Tablet 10 MG PO (09:51)
--- NOTE | 2023-02-25 10:30 | CASEMGMT ---
SANDRA TRAN Assessment: Face to Face with pt for initial transition planning/care coordination assessment. RN CHELSEA introduced self and role at [facility], pt voices understanding and consents to assessment. Pt is A&O x4 and answers all questions appropriately at this time. Pt lying in bed in no distress. Care providers, pharmacy, and demographics verified/updated. Admitting Dx: acute colitis PCP:Darlyn Specialists:Denies- States she knows she needs a specialist after this hospitalization and she will speak with about this. [facility]erred [facility]acy[facility] Insurance: [employer] Pres[employer] Benefit: yes LNOK: Reynaldo Parisi, Living Arrangements: Pt lives with her dtr and 2 grandchildren and her in a single story home with no steps to enter. Pt states she just moved back from [place] and is looking for a home for her and her . They were supposed to go today to look at one. Pt reports she is I in ADL's and denies concerns at home. Transportation: Pt does not drive. She states her or one of her 8 children transport her. Pt denies concerns with transportation. DME:Denies HHC/SNF: Denies hx of Pt states no concerns with going home at time of dc. Pt states no further concerns/needs. CM to follow. Advised pt to ask CM if any further question/concerns/needs arise, voices understanding. Pt Goal: Home Plan: Home
[2023-02-25] MEDS: oxyCODONE 5 MG Tablet PO (20:34)
[2023-02-25] MEDS: Acetaminophen 325 MG Tablet 650 MG PO (20:34)
[2023-02-26] MEDS: 0.9% Normal Saline (1000mL) 1,000 ML 150 ML IV (02:39)
[2023-02-26 02:40] VITALS: BP 96/50; PULSE 61; RESP 18; TEMP 36.8; O2SAT 98
[2023-02-26] MEDS: metroNIDAZOLE 500 MG/100 ML BAG 100 MG IV (06:07)
[2023-02-26 06:24] LABS: Absolute Lymphocyte Count 2.95 X10^3/uL (0.83-4.51); Absolute Neutrophil Count 3.8 X10^3/uL (2.0-7.7); Basophil# 0.03 X10^3/uL; Basophil% 0.4 % (0-1); Eosinophil# 0.01 X10^3/uL; Eosinophils% 0.1 % (0-5); Hematocrit 29.9 % (37-47); Hemoglobin 10.2 g/dL (12.0-15.0); Lymphocyte # 2.95 X10^3/ul (0.83-4.51); Lymphocyte % 40.4 % (19-41); Mean Corp Hgb Conc 34.1 g/dL (32-36); Mean Corpuscular Hgb 32.8 pg (27.0-32.0); Mean Corpuscular Volume 96.1 fL (81-99); Mean Platelet Vol. 12.5 fl (6.2-12.0); Monocyte# 0.52 X10^3/uL; Monocyte% 7.1 % (0-10); NRBC Flagged by Analyzer 0 % (0-5); Neutrophil # 3.78 X10^3/uL (2.7-7.7); Neutrophil % 51.7 % (47-70); Platelet Count 187 K/mm3 (150-450); RBC Distribution Width CV 12.6 % (11.6-14.6); RBC Distribution Width SD 43.8 fl (35.1-43.9); Red Blood Count 3.11 M/mm3 (4.2-5.4); White Blood Count 7.3 K/mm3 (4.4-11.0)
[2023-02-26 06:32] LABS: Anion Gap 6 (5-15); BUN 5 mg/dL (7-18); BUN/Creat Ratio 9.3 RATIO (10-20); Calcium,Total 7.7 mg/dL (8.5-10.1); Chloride 114 mmol/L (98-107); Creatinine, Serum 0.54 mg/dL (0.55-1.02); EST Glomerular Filtration Rate 130 mL/min (>60); Est Glom Filt Rate - Afr Amer 157 mL/min (>60); Estimated Creatinine Clearance 111.11 ml/min; Glucose 98 mg/dL (74-106); Magnesium 1.9 mg/dL (1.6-2.6); Phosphorus 1.4 mg/dL (2.5-4.9); Potassium 3.4 mmol/L (3.5-5.1); Sodium Level 141 mmol/L (136-145)
--- NOTE | 2023-02-26 07:32 | PN.HOSP_ITS ---
Reason for Visit Reason for Visit: Diagnoses Acidosis, unspecified (02/25/23) Noninfective gastroenteritis and colitis, unspecified (02/25/23) Unspecified abdominal pain (02/25/23) Vomiting, unspecified (02/25/23) Diarrhea, unspecified (02/25/23) Subjective Subjective Patient seen symptoms significantly improved denies any pain. Plan is to adva nce patient's diet and assess for possible discharge Objective Data Objective Data Vital Signs: Vital Signs Temp Pulse Resp BP Pulse Ox O2 Del Method 98.2 F 61 18 96/50 L 98 Room Air 02/26/23 02:40 02/26/23 02:40 02/26/23 02:40 02/26/23 02:40 02/26/23 02:40 02/26/23 02:40 Oxygen Delivery Method Room Air Weight: 53.5 kg Body Mass Index (BMI) 20.2 Intake & Output: Intake and Output for Last 24 Hours 02/24/23 02/25/23 02/26/23 23:59 23:59 23:59 Intake Total 3402.5 / 3402.5 1082.5 / 1082.5 Balance 3402.5 / 3402.5 1082.5 / 1082.5 Lab / Micro Data 02/26/23 05:47 02/26/23 05:47 Labs: Laboratory Results - last 24 hr 02/25/23 07:09: Sodium 143, Potassium 4.0, Chloride 116 H, Carbon Dioxide 20.0 L , Anion Gap 7, BUN 5 L, Creatinine 0.75, Estim Creat Clear Calc 80.00, Est GFR (MDRD) Af Amer 107, Est GFR (MDRD) Non-Af 88, BUN/Creatinine Ratio 6.7 L, Glucose 124 H, Lactic Acid 1.7, Calcium 8.1 L 02/26/23 05:47: WBC 7.3, RBC 3.11 L, Hgb 10.2 L, Hct 29.9 L, MCV 96.1, MCH 32.8 H, MCHC 34.1, RDW Std Deviation 43.8, RDW Coeff of Huong 12.6, Plt Count 187, MPV 12.5 H, Immature Gran % (Auto) 0.300, Neut % (Auto) 51.7, Lymph % (Auto) 40.4, [place] % (Auto) 7.1, Eos % (Auto) 0.1, Baso % (Auto) 0.4, Absolute Neuts (auto) 3.8, Absolute Lymphs (auto) 2.95, Nucleated RBC % 0, Sodium 141, Potassium 3.4 L , Chloride 114 H, Carbon Dioxide 21.0, Anion Gap 6, BUN 5 L, Creatinine 0.54 L, Estim Creat Clear Calc 111.11, Est GFR (MDRD) Af Amer 157, Est GFR (MDRD) Non-Af 130, BUN/Creatinine Ratio 9.3 L, Glucose 98, Calcium 7.7 L, Phosphorus 1.4 L, Magnesium 1.9 Physical Exam Narrative GENERAL: cooperative HEENT: Atraumatic; normocephalic EYES; Anicteric, Normal Conjunctiva NECK; supple, normal thyroid, RESPIRATORY: Diminished to auscultation CARDIOVASCULAR: Regular S1 S2, GI: soft, normoactive bowel sounds, : No Renal angle tenderness; EXTREMITIES: No edema, no clubbing, MUSCULOSKELETAL: no muscle wasting NEURO: Awake; no lateralizing signs. SKIN: No Rash PSYCH; Flat affect Assessment & Plan Assessment/Plan (1) Colitis: PLAN: Plan Patient is a 47-year-old lady who presented with abdominal pain with associated nausea and vomiting imaging studies obtained on admission did show Thickening of the ascending colon with mild adjacent fat stranding consistent with colitis. Admitted to regular nursing floor for further management 1. Acute colitis ? Patient admitted to regular nursing floor managed with ciprofloxacin as well as metronidazole. Patient has had apparently had recurrent colitis consult was therefore placed to GI for possible endoscopic evaluation to rule out underlying IBD ? 02/26/2023 symptoms resolved. Will advance diet and assess for possible discharge 2. Chronic marijuana use I did explain to patient that may contribute to patient's symptoms including the nausea and vomiting 3. A2. 3 mm low-density lesion in the upper pole of the right kidney with indeterminate attenuation values. -Plan is for patient to follow-up with her routine MRI as outpatient to be performed by patient's primary care physician 4. DVT prophylaxis ? Low risk with encouraging ambulation Time spent in the patient's overall evaluation,decision-making process, review of diagnostic data, adjustment of management, discussion with other providers, nursing nursing and ancillary staff involved in patient's care documentation, 35 Minutes Charges/Coding Visit Charges Inpatient E&M: 98805 Subs Hosp L2
[2023-02-26 07:53] VITALS: BP 113/68; PULSE 50; RESP 12; TEMP 37; O2SAT 98
[2023-02-26 07:56] VITALS: PULSE 70
--- NOTE | 2023-02-26 09:36 | PCM.DC.SUM ---
Providers Date of Admission: 02/25/23 Date of Discharge: 02/26/23 Primary Care Physician: Dr. Marcial Santizo MD Consultations 02/25/23 12:13 Consult: Gastroenterology Routine Consulting Provider: [facility] Reason for Consult: Recurrent colitis EMERGENT Consult: No MD Notified: Yes Date Notified: 02/25/23 Time Notified: 12:29 Method of Notification: Text Reason For Visit: ACUTE COLITIS Diagnosis Discharge Diagnosis (1) Colitis: Status: Acute Code(s): K52.9 - Noninfective gastroenteritis and colitis, unspecified Plan Patient is a 47-year-old lady who presented with abdominal pain with associated nausea and vomiting imaging studies obtained on admission did show Thickening of the ascending colon with mild adjacent fat stranding consistent with colitis. Admitted to regular nursing floor for further management 1. Acute colitis ? Patient admitted to regular nursing floor managed with ciprofloxacin as well as metronidazole. Patient has had apparently had recurrent colitis consult was therefore placed to GI for possible endoscopic evaluation to rule out underlying IBD ? 02/26/2023 symptoms resolved. Will advance diet and assess for possible discharge 2. Chronic marijuana use I did explain to patient that may contribute to patient's symptoms including the nausea and vomiting 3. A2. 3 mm low-density lesion in the upper pole of the right kidney with indeterminate attenuation values. -Plan is for patient to follow-up with her routine MRI as outpatient to be performed by patient's primary care physician 4. DVT prophylaxis ? Low risk with encouraging ambulation Time spent in the patient's overall evaluation,decision-making process, review of diagnostic data, adjustment of management, discussion with other providers, nursing nursing and ancillary staff involved in patient's care documentation, 35 Minutes Medications at Discharge Home Medications famotidine 10 mg tablet 10 mg PO DAILY 02/25/23 ciprofloxacin HCl 500 mg tablet (Cipro) 500 mg PO BID #10 tabs 02/26/23 metronidazole 500 mg tablet 500 mg PO TID #15 tabs 02/26/23 Physical Exam Narrative GENERAL: cooperative HEENT: Atraumatic; normocephalic EYES; Anicteric, Normal Conjunctiva NECK; supple, normal thyroid, RESPIRATORY: Diminished to auscultation CARDIOVASCULAR: Regular S1 S2, GI: soft, normoactive bowel sounds, : No Renal angle tenderness; EXTREMITIES: No edema, no clubbing, MUSCULOSKELETAL: no muscle wasting NEURO: Awake; no lateralizing signs. SKIN: No Rash PSYCH; Flat affect Weight / BMI Weight Weight: 53.5 kg Body Mass Index (BMI) 20.2 ABG / Lab / Microbiology Data 02/26/23 05:47 02/26/23 05:47 Laboratory: Laboratory Results - last 24 hr 02/26/23 05:47: WBC 7.3, RBC 3.11 L, Hgb 10.2 L, Hct 29.9 L, MCV 96.1, MCH 32.8 H, MCHC 34.1, RDW Std Deviation 43.8, RDW Coeff of Huong 12.6, Plt Count 187, MPV 12.5 H, Immature Gran % (Auto) 0.300, Neut % (Auto) 51.7, Lymph % (Auto) 40.4, [place] % (Auto) 7.1, Eos % (Auto) 0.1, Baso % (Auto) 0.4, Absolute Neuts (auto) 3.8, Absolute Lymphs (auto) 2.95, Nucleated RBC % 0, Sodium 141, Potassium 3.4 L, Chloride 114 H, Carbon Dioxide 21.0, Anion Gap 6, BUN 5 L, Creatinine 0.54 L, Estim Creat Clear Calc 111.11, Est GFR (MDRD) Af Amer 157, Est GFR (MDRD) Non-Af 130, BUN/Creatinine Ratio 9.3 L, Glucose 98, Calcium 7.7 L, Phosphorus 1.4 L, Magnesium 1.9 D/C Instructions Discharge Diet: No restrictions Discharge Activity: Return to Normal Activity Call your doctor if you observe: Fever of 101 or Higher, Shortness of breath, Fainting spells and Chest pain Meaningful Use Info Meaningful Use Diagnoses (Choose all that apply): None applicable Discharge Plan Admission Admit Date/Time: 02/25/23 04:26 Attending Provider: Rafy Galan Primary Care Provider: Marcial Santizo Consulting Providers: Jessy Pedraza Discharge Orders/Prescriptions Prescriptions: New ciprofloxacin HCl [Cipro] 500 mg tablet 500 mg PO BID Qty: 10 0RF metronidazole 500 mg tablet 500 mg PO TID Qty: 15 0RF Continued famotidine 10 mg tablet 10 mg PO DAILY Referrals / Follow Up: Khari Jaramillo DO [Med Staff - Active Staff] - Within 2 Weeks Marcial Santizo MD [Primary Care Provider] - Within 2 Weeks Disposition Disposition (needs filled in before D/C Order can be placed): Home, Self Care Charges/Coding Visit Charges Inpatient E&M: 45260 Disch Hosp >30min
== END 2023-02-26 10:40 | disposition home or self-care (01) | DRG 392 ==
LOC: ED 04:15 → MS3 04:37
PROVIDERS: Admitting Provider Student in an Organized Health Care Education/Training Program; Emergency Provider Emergency Medicine; PCP Family Medicine; Visit Provider Internal Medicine
DX: K52.9 Noninfective gastroenteritis and colitis, unspecified (principal); F10.10 Alcohol abuse, uncomplicated; F12.90 Cannabis use, unspecified, uncomplicated; F17.210 Nicotine dependence, cigarettes, uncomplicated; K21.9 Gastro-esophageal reflux disease without esophagitis; Y90.3 Blood alcohol level of 60-79 mg/100 ml; N28.9 Disorder of kidney and ureter, unspecified; Z79.899 Other long term (current) drug therapy
CPT/HCPCS: 36415; 74177; 80048; 80053; 80320; 81001; 83605; 83690; 83735; 84100; 85025; 96361; 96365; 96366; 96367; 96372; 96375; 96376; 97802; 99221; 99285; 99406; J7030; Q9967; A4216; G0378; G0480; J0744; J2405